=== PATIENT | male | born 1950 | race American Indian/Alaskan Native ===

== ENCOUNTER 2018-03-17 12:11 | Inpatient (IN) | payer OTHER, MEDICARE ==
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
[2018-03-17 14:06] LABS: Basophils # (Auto) 0.1 K/mm3 (0.0-0.1); Basophils % (Auto) 0.8 % (0.0-1.8); Eosinophils # (Auto) 0.1 K/mm3 (0.0-0.4); Eosinophils % (Auto) 2.1 % (0.0-4.3); Hematocrit 39.9 % (35.5-45.6); Hemoglobin 13.5 gm/dl (11.8-15.2); Lymphocytes # (Auto) 1.5 K/mm3 (1.2-5.4); Lymphocytes % (Auto) 22.4 % (13.4-35.0); Mean Corpuscular HGB Conc 34 % (32-34); Mean Corpuscular Hemoglobin 30 pg (28-32); Mean Corpuscular Volume 87 fl (84-94); Monocytes # (Auto) 0.6 K/mm3 (0.0-0.8); Monocytes % (Auto) 8.8 % (0.0-7.3); Platelet Count 216 K/mm3 (140-440); Red Blood Count 4.57 M/mm3 (3.65-5.03); Red Cell Distribution Width 12.9 % (13.2-15.2)
[2018-03-17 14:16] LABS: INR 0.92 (0.87-1.13)
[2018-03-17 14:17] LABS: Partial Thromboplastin Time 40.6 Sec. (24.2-36.6)
[2018-03-17 14:21] LABS: Alanine Aminotransferase 32 units/L (7-56); Albumin 3.8 g/dL (3.9-5); BUN/Creatinine Ratio 13; Blood Urea Nitrogen 9 mg/dL (9-20); Hemolysis Index 6
[2018-03-17] MEDS ORDERED: NORCO 5/325 PO ONE (14:25)
[2018-03-17 14:32] LABS: Chol/HDL Ratio 5.34 %; HDL Cholesterol 50 mg/dL (40-59); LDL Cholesterol,Direct 198 mg/dL (50-130)
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
[2018-03-17] MEDS: BABY ASPIRIN PO ONE ×2 (15:09→15:20)
--- NOTE | 2018-03-17 15:22 | XRay Report ---
FINAL REPORT PROCEDURE: XR CHEST ROUTINE 2V TECHNIQUE: PA and lateral chest radiographs were obtained. CPT 21636 HISTORY: Trauma COMPARISON: No prior studies are available for comparison. FINDINGS: Heart size and pulmonary vasculature appear normal. No evidence of pulmonary edema or pleural effusion. No infiltrates masses or pneumothorax visualized. Right diaphragm is elevated. Chronicity is indeterminate. There are no prior studies. No acute bony abnormalities are seen per IMPRESSION: Elevated right diaphragm. No other abnormalities are seen..
[2018-03-17] MEDS ORDERED: TYLENOL PO PRN (15:26)
[2018-03-17] MEDS ORDERED: MOTRIN PO PRN (15:26)
[2018-03-17] MEDS ORDERED: SODIUM CHLORIDE FLUSH SYRINGE 10 ML IV PRN (15:26)
[2018-03-17] MEDS ORDERED: PROVENTIL IH PRN (15:26)
[2018-03-17] MEDS ORDERED: ZOFRAN IV PRN (15:26)
[2018-03-17] MEDS ORDERED: NON-FORMULARY (Esomeprazole Magnesium [Nexium] 40 MG) PO SCH (15:30)
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
[2018-03-17] MEDS: COREG PO SCH (16:03)
[2018-03-17] MEDS: COZAAR PO SCH (16:03)
[2018-03-17] MEDS: PROTONIX PO SCH (16:03)
[2018-03-17] MEDS ORDERED: BABY ASPIRIN ONE (16:43)
[2018-03-17] MEDS: HumaLOG SUB-Q SCH (18:08)
[2018-03-17] MEDS ORDERED: INSULIN DETEMIR 30 UNIT SQ SCH (22:00)
[2018-03-17] MEDS ORDERED: NON-FORMULARY (Insulin Aspart 20 UNITS) SQ SCH (22:00)
[2018-03-17] MEDS: LANTUS SUB-Q SCH (22:57)
[2018-03-17] MEDS: SODIUM CHLORIDE FLUSH SYRINGE 10 ML IV SCH (22:58)
[2018-03-18] MEDS: HumaLOG SUB-Q SCH ×2 (08:12→17:14)
[2018-03-18] MEDS: COREG PO SCH (09:07)
[2018-03-18] MEDS: PROTONIX PO SCH (09:07)
[2018-03-18] MEDS: COZAAR PO SCH (09:07)
[2018-03-18] MEDS: LANTUS SUB-Q SCH ×2 (09:08→22:26)
[2018-03-18] MEDS: SODIUM CHLORIDE FLUSH SYRINGE 10 ML IV SCH ×2 (09:08→22:27)
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
[2018-03-18] MEDS: ASPIRIN PO SCH (10:15)
[2018-03-18] MEDS ORDERED: PROAIR IH PRN (10:24)
--- NOTE | 2018-03-18 14:43 | Cat Scan Report ---
FINAL REPORT PROCEDURE: CT ANGIO CHEST TECHNIQUE: Computerized tomographic angiography of the chest was performed during the IV injection of iodinated nonionic contrast including image processing. The image data was postprocessed using 2-dimensional multiplanar reformatted (MPR) and 3-dimensional (MIP and/or volume rendered) techniques. HISTORY: PULMONARY EMBOLISIM COMPARISON: No prior studies are available for comparison. FINDINGS: Pulmonary outflow tract, right and left main pulmonary arteries and their proximal branches: Clear, no filling defects seen to suggest pulmonary embolus. Pericardium: No evidence of pericardial effusion. Thoracic aorta: Mild atherosclerotic changes are visualized, no evidence of aneurysmal dilatation or dissection. Coronary arteries: Are partially calcified indicating atherosclerotic disease. Mediastinum and hilar regions: Nonspecific subcentimeter lymph nodes are visualized. No pathologically enlarged lymph nodes or masses are identified. Lung Collins: There is eventration and elevation of the right diaphragm. There is linear band of atelectasis in the right lower lobe. There is minimal dependent atelectasis. Thin linear bands of atelectasis seen in the inferior aspect of the lingula. No infiltrates masses effusions or pneumothorax are visualized. Upper abdomen: Several small calcified gallstones are seen dependently in the gallbladder. Gallbladder is otherwise unremarkable. The edge of the liver appears to show mild fine nodularity. I cannot exclude cirrhosis. Upper abdomen is otherwise unremarkable. Other: No acute bony abnormalities are seen. IMPRESSION: No evidence of pulmonary embolus. Cholelithiasis. Small amount of atelectasis seen in the lung bases as described. There is elevation and eventration of the right diaphragm.
[2018-03-18 18:16] LABS: Creatine Kinase MB 8.4 ng/mL (0.0-4.0)
[2018-03-19] MEDS: HumaLOG SUB-Q SCH ×2 (08:40→17:34)
[2018-03-19] MEDS: COZAAR PO SCH (09:39)
[2018-03-19] MEDS: ASPIRIN PO SCH (09:39)
[2018-03-19] MEDS: COREG PO SCH ×2 (09:39→23:10)
[2018-03-19] MEDS: PROTONIX PO SCH (09:39)
[2018-03-19] MEDS: SODIUM CHLORIDE FLUSH SYRINGE 10 ML IV SCH ×2 (09:40→23:13)
[2018-03-19] MEDS: LANTUS SUB-Q SCH ×2 (09:41→23:13)
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
--- NOTE | 2018-03-19 12:54 | Discharge Summary ---
Providers - Providers Date of Admission: 03/17/18 17:01 Attending physician: MARGARITO PALACIO MD 03/18/18 10:00 Consult to Physician [CONS] Routine Comment: [phone](SYLVIA) Consulting Provider: IRMA FOLEY Physician Instructions: consult was called to Reason For Exam: chest pain, nstemi Primary care physician: DEICER ELEMENT WINDER MACHINE Hospitalization Condition: Stable Disposition: TO HOME OR SELFCARE Time spent for discharge: 35 mins Exam - Physical Exam Narrative exam: VITAL SIGNS: Reviewed. GENERAL: The patient appeared well nourished and normally developed. Vital signs as documented. HEAD: No signs of head trauma. EYES: Pupils are equal. Extraocular motions intact. EARS: Hearing grossly intact. MOUTH: Oropharynx is normal. NECK: No adenopathy, no JVD. CHEST: Chest with clear breath sounds bilaterally. No wheezes, rales, or rhonchi. CARDIAC: Regular rate and rhythm. S1 and S2, without murmurs, gallops, or rubs. VASCULAR: No Edema. Peripheral pulses normal and equal in all extremities. ABDOMEN: Soft, without detectable tenderness. No sign of distention. No rebound or guarding, and no masses palpated. Bowel Sounds normal. MUSCULOSKELETAL: Good range of motion of all major joints. Extremities without clubbing, cyanosis or edema. NEUROLOGIC EXAM: Alert and oriented x 3. No focal sensory or strength deficits. Speech normal. Follows commands. PSYCHIATRIC: Mood normal. SKIN: No rash or lesions. - Constitutional Vitals: Temp Pulse Resp BP Pulse Ox 99.1 F 61 20 150/76 95 03/19/18 08:40 03/19/18 10:00 03/19/18 10:00 03/19/18 09:39 03/19/18 08:29 Plan Activity: advance as tolerated, fall precautions Diet: low fat, diabetic Special Instructions: record daily weights, record daily BP diary, record blood sugar diary Additional Instructions: FOllow up with primary doctors at [facility] Follow up with: PRIMARY CAREMD [Primary Care Provider] - 3-5 Days Prescriptions: Rosuvastatin Calcium [Crestor] 40 mg PO QHS #30 tablet Carvedilol [Coreg] 25 mg PO BID #60 tablet Esomeprazole Magnesium [NexIUM] 40 mg PO QDAY #30 capsule. traMADol [Ultram] 50 mg PO Q6HR PRN #20 tablet PRN Reason: Pain
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
[2018-03-20] MEDS ORDERED: LEXISCAN IV ONE ×2 (08:52→08:56)
[2018-03-20] MEDS: HumaLOG SUB-Q SCH (08:53)
[2018-03-20] MEDS: LANTUS SUB-Q SCH (10:00)
[2018-03-20] MEDS: COZAAR PO SCH (10:50)
[2018-03-20] MEDS: PROTONIX PO SCH (10:50)
[2018-03-20] MEDS: ASPIRIN PO SCH (10:50)
[2018-03-20] MEDS: SODIUM CHLORIDE FLUSH SYRINGE 10 ML IV SCH (10:50)
[2018-03-20] MEDS: COREG PO SCH (10:50)
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
[2018-03-20 13:24] VITALS: BP 148/73
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
--- NOTE | 2018-03-20 21:53 | Treadmill Report ---
NUCLEAR CARDIAC IMAGING INDICATION FOR PROCEDURE: Chest pain, abnormal troponin. Informed consent was obtained. DESCRIPTION OF PROCEDURE: Vasodilator stress was achieved with the intravenous administration of 0.4 mg of Lexiscan. Resting nuclear cardiac imaging was performed 45-60 minutes following the intravenous administration of 10 mCi of technetium-99m Myoview. Stress imaging was performed 30-45 minutes following the intravenous administration of 28 mCi of technetium Myoview. Imaging was performed in a 180-degree arc from 45 degrees PLUNKETT to 45 degrees LPO. After data acquisition, the images were reconstructed, processed and reoriented into the vertical long, horizontal long, and horizontal short axis slices. A polar color map of the horizontal short axis slices was generated and reviewed. The rotating planar images reviewed in cinematic format on the computer console. Gated SPECT imaging demonstrates a post-stress left ventricular ejection fraction of 59%. Left ventricular segmental wall motion is normal. Myocardial perfusion imaging demonstrates no significant cavity change between stress and rest. There is a medium size moderately intense persistent inferior wall perfusion defect, which in the absence of an accompanying wall motion abnormality is likely artifactual in origin. Nuclear cardiac imaging demonstrates grossly normal post-stress left ventricular systolic function with no significant evidence for myocardial ischemia or necrosis. JOB# [id number] ADELINA/SHERMAN
== END 2018-03-20 13:52 | disposition home or self-care (01) | DRG 71 ==
LOC: ED 12:11 → 2B-ACE 17:01
PROVIDERS: ADMIT Internal Medicine; ATTEND Internal Medicine
DX: G93.41 Metabolic encephalopathy (principal); I24.9 Acute ischemic heart disease, unspecified; I10 Essential (primary) hypertension; E11.9 Type 2 diabetes mellitus without complications; F07.81 Postconcussional syndrome; E88.81 Metabolic syndrome and other insulin resistance; I16.0 Hypertensive urgency; E78.2 Mixed hyperlipidemia; E11.65 Type 2 diabetes mellitus with hyperglycemia; G51.0 Bell's palsy; S13.4XXA Sprain of ligaments of cervical spine, initial encounter; E78.5 Hyperlipidemia, unspecified; S20.219A Contusion of unspecified front wall of thorax, initial encounter; V43.52XA Car driver injured in collision with other type car in traffic accident, initial encounter; Y93.89 Activity, other specified; Z86.73 Personal history of transient ischemic attack (TIA), and cerebral infarction without residual deficits; Z79.84 Long term (current) use of oral hypoglycemic drugs; Y92.411 Interstate highway as the place of occurrence of the external cause; Y99.8 Other external cause status; Z83.3 Family history of diabetes mellitus; Z82.49 Family history of ischemic heart disease and other diseases of the circulatory system
CPT/HCPCS: 36415; 70450; 71046; 71275; 72125; 78452; 80053; 80061; 82550; 82553; 82962; 84484; 85025; 85379; 85610; 85730; 93005; 93010; 93017; 93306; A9270-GY; A9502; J1815; J2785; Q9967

== ENCOUNTER 2021-01-28 20:27 | Emergency (ER) | payer MEDICARE ==
--- NOTE | 2021-01-28 21:41 | Event Note ---
ED Screening Note Date of service: 01/28/21 Time: 21:38 ED Screening Note: Patient complains of catheter coming out and burning sensation Discharge from a long hospital stay 01/22/2021 This initial assessment/diagnostic orders/clinical plan/treatment(s) is/are subject to change based on patients health status, clinical progression and re- assessment by fellow clinical providers in the ED. Further treatment and workup at subsequent clinical providers discretion. Patient/guardian urged not to elope from the ED as their condition may be serious if not clinically assessed and managed. Initial orders include: UA
[2021-01-28 21:42] VITALS: BP 108/64
== END 2021-01-29 00:45 | disposition left against medical advice (07) ==
LOC: ED 20:27
DX: R30.9 Painful micturition, unspecified (principal); Z53.21 Procedure and treatment not carried out due to patient leaving prior to being seen by health care provider